=== PATIENT | male | born 1965 | race Caucasian/White ===

== ENCOUNTER 2024-04-02 01:03 | Emergency (ER) | payer BC, SELFPAY ==
[2024-04-02 01:14] VITALS: BP 166/114
--- NOTE | 2024-04-02 01:33 | ED.GENMED ---
History of Present Illness
General
Chief Complaint: Cough
Source: patient
Exam Limitations: none
Time Seen by Provider: 04/02/24 01:24
History of Present Illness
History of Present Illness:
This is a 58 year old male that comes in with c/o cough. States that this started around 6pm tonight. States that he did have Pneumonia 3 weeks ago. Patient started on Doxycycline and he felt it was not working so he went back to [facility] and
was given a Z-pack. States that tonight he felt SOB with the cough, headache and dizziness with walking. States that he took Dayquil between 6-9 and then Night-Quil between 9-12. Denies any fever, chills, abd pain, nausea, vomiting, diarrhea,
urinary burning.
Past History
Past History
ED Past Medical History: HTN, Hypercholesterolemia, NIDDM, Psychiatric (Depression) and Other (Colon polyps, PNA , ADHD, )
ED Past Surgical History: Other (1/3 of Thyroid removed)
Social History
Tobacco: Former smoker
Alcohol: None
Personal: Single
Living: alone
Employment: Employed
Review of Systems
Review of Systems
All Other Systems: ROS reviewed and negative except as documented in HPI and ROS
Constitutional: Reports no symptoms; Denies fever or chills
EENT: Reports no symptoms
Respiratory: Reports cough and trouble breathing
Cardiac: Reports no symptoms; Denies chest pain
ABD/GI: Reports no symptoms; Denies abdominal pain, nausea, vomiting or diarrhea
: Reports no symptoms; Denies dysuria, frequency or urgency
Musculoskeletal: Reports no symptoms
Skin: Reports no symptoms
Neurological: Reports dizzy and headache
Psychiatric: Reports no symptoms
Phy Exam
General Physical Exam
General Presentation: no apparent distress
General age: appears stated age
General Skin: warm and dry
General Habitus: normal
General Mental: alert
General Hydration: dry mucous membranes
ENT Exam
ENT Exam: TM's normal, pharynx normal and neck supple
Eye Exam
Eye Exam: EOMI
Cardiovascular Exam
Cardiovascular Exam: regular rate/rhythm, no edema, no murmur and normal peripheral pulses
Pulmonary Exam
Pulmonary Exam: lungs clear, no respiratory distress, no rales, chest non tender, no crackles, no rhonchi and other (Exp wheezing throughout, Dry cough noted)
Gastrointestinal Exam
Gastrointestinal Exam: normal bowel sounds, non tender, soft, no organomegaly, no pulsatile mass and non distended
Musculoskeletal Exam
Musculoskeletal Exam: full ROM and no edema
Skin Exam
Skin Exam: normal color, warm/dry, no rash and no petechia
Psychiatric Exam
Psychiatric Exam: normal mood/affect
Course
Orders/Labs/Results
Orders:
Orders
04/02/24 01:22
CR Chest - 2 Views Urgent
Comment:
Reason For Exam: cough
04/02/24 01:32
Ipratropium/Albuterol Sulfate [Duoneb] 3 ml INH R NOW ONE
Prednisone [Deltasone] 40 mg PO NOW STA
04/02/24 01:44
COVID-19 Antigen Urgent
Source: Nasal Swab
Negative for COVID
Vital Signs
Initial and Last Documented VS:
Initial Vital Signs
Temp Pulse Resp BP Pulse Ox
98.4 F 110 26 166/114 96
04/02/24 01:14 04/02/24 01:14 04/02/24 01:14 04/02/24 01:14 04/02/24 01:14
Last Documented Vital Signs
Temp Pulse Resp BP Pulse Ox
98.4 F 110 26 166/114 96
04/02/24 01:14 04/02/24 01:14 04/02/24 01:14 04/02/24 01:14 04/02/24 01:14
MDM/Problems Addressed
Differential Diagnosis Includes:
Wheezing, PNA, COVID
MDM/Problems Addressed:
This is a 58 year old male that comes in with c/o cough. States that this started at 6pm tonight. States that he has taken Dayquil and NIght Quil and nothing is helping. Patient also took Doxycycline that he had not finished when he had Pneumonia
and he said it didn't work and he was switched to Z-pack.
Will get Chest X-ray, Give a Duo Neb and steroids.
Chronic conditions affecting care:
NA
Acute Exacerbation and/or Progression of Chronic Illness:
NA
*Radiology
Radiology exam reviewed: preliminary read by ED provider (Chest-Negative for active disease. )
*Pulse Oximetry
Patient hypoxic: no
*EKG
Interpreted by ED Provider?: NA
Rate: EKG- N/A
*Branch Manager Trainee Interpretation
Rate: Branch Manager Trainee- N/A
*Critical Care Note
Total Time (30-74mins, 75-104mins- exclusive of procedures): Not Applicable
ED Attending Note
-
Portions of this chart may have been created with voice recognition software.� Occasional wrong word or��sound alike� substitutions may have occurred due to the inherent limitations of voice recognition software.
Discharge Plan
Departure
Patient Disposition: Home (Routine Discharge)
Date of Disposition: 04/02/24
Time of Disposition: 02:13
Patient with high blood pressure during this ER visit?: Yes
Condition: Good
Covid-19: Negative COVID-19
Discharge Problem:
Cough in adult, Expiratory wheezing
Instructions: Cough, Adult (DC), Wheezing in adults - ED discharge instructions, BLOOD PRESSURE
Prescriptions:
New
prednisone 20 mg tablet
40 mg PO DAILY Qty: 8 0RF
No Action
methylphenidate HCl 20 MG tablet
1.5 tab PO BID
sulfamethoxazole-trimethoprim 800 MG/160 MG tablet
2 tab PO BID
gemfibrozil 600 MG tablet
600 mg PO DAILY
lisinopril-hydrochlorothiazide 1 EACH tablet
1 ea PO DAILY
TYLENOL PM EX-STRENGTH CAPLET
2 tab PO
prednisone 10 MG tablet
10 mg PO .TAPER Qty: 30 0RF
Rx Instructions:
Take [id number], [id number], [id number], [id number].
Activity Restrictions/Additional Instructions:
As discussed, you are negative for COVID. Your Chest x-ray is negative for any acute disease. You are wheezing. You have been given a steroid here that will help decrease the inflammation and help with the coughing. A prescription has been sent to
your pharmacy for a steroid for the next 4 days. This will elevate your blood sugar so please watch your sugar intake and check your glucose. Follow up with the family doctor for recheck. Please increase your water intake to 8-8oz glasses daily. IF
YOU HAVE INCREAED SHORTNESS OF BREATH, OR YOU HAVE ANY OTHER CONCERNS PLEASE RETURN TO THE EMERGENCY ROOM.
Interventions
Interventions:
*Risk Screen - Suicide Last Done: 04/02/24 01:14
*General Assessment Last Done: 04/02/24 01:43
*Neglect/Abuse Screening Last Done: 04/02/24 01:14
ED- Fall Risk Assessment Last Done: 04/02/24 01:27
*ED COVID-19 Vaccine History Last Done: 04/02/24 01:43
ED- Pulmonary Assessment Last Done: 04/02/24 01:35
Discharge Date and Time
Print Language: ISRAELI
[2024-04-02] MEDS: DELTASONE 40 MG PO (01:45)
[2024-04-02] MEDS: DUONEB 3 ML INH (01:45)
[2024-04-02 02:06] LABS: COVID-19 Antigen Negative (Negative)
== END 2024-04-02 02:28 | disposition home or self-care (01) ==
LOC: EMR 01:03
PROVIDERS: Clinical Nurse Specialist Family Health; EMERGENCY PHYSICIAN Emergency Medicine; FAMILY PHYSICIAN Internal Medicine
DX: R05.9 Cough, unspecified (principal); R06.2 Wheezing; I10 Essential (primary) hypertension; E78.00 Pure hypercholesterolemia, unspecified; E11.9 Type 2 diabetes mellitus without complications; Z87.891 Personal history of nicotine dependence
CPT/HCPCS: 94640; 99284; 71046; 87811